=== PATIENT | female | born 1985 | race Caucasian/White ===

== ENCOUNTER 2019-10-27 05:42 | Observation (INO) ==
[2019-10-27] MEDS ORDERED: LIDOCAINE W/ SODIUM BICARB 0.5 ML SYR SUBD ONE (06:00)
[2019-10-27] MEDS ORDERED: Nasal Sanitizer POPSWAB ampule 3 AMP (Nozin) PREOP DOSE ENOS SCH (06:00)
[2019-10-27] MEDS ORDERED: ceFAZolin Inj 2gm (Premix) 2 GM/50 ML BAG IV ONE ×2 (06:00→06:02)
[2019-10-27] MEDS ORDERED: Vancomycin-PHA to Dose IV PRN (06:00)
[2019-10-27] MEDS ORDERED: Lactated Ringers 1,000 ML PRIMARY IV ONE ×3 (06:00→08:51)
[2019-10-27] MEDS ORDERED: VANCOMYCIN IV ONE (06:02)
[2019-10-27] MEDS ORDERED: LIDOCAINE W/ SODIUM BICARB 0.5 ML SYR ONE (06:02)
[2019-10-27 06:16] LABS: BILIRUBIN,URINE SMALL (NEG); CLARITY,URINE CLEAR (CLEAR); COLOR,URINE YELLOW (Y); GLUCOSE, URINE (UA) NEGATIVE (NEG); OCCULT BLOOD,URINE NEGATIVE (NEG); PH,URINE 5.5 (5.0-8.5); PROTEIN,URINE NEGATIVE (NEG); UROBILINOGEN,URINE 0.2 EU/dL (0.2)
[2019-10-27 06:18] LABS: URINE SAMPLE TYPE CLEAN CATCH URINE; URINE SPECIFIC GRAVITY - MAN 1.024
[2019-10-27] MEDS ORDERED: REMIFENTANIL HCL 5 MG VIAL IV ONE (06:32)
[2019-10-27] MEDS ORDERED: KETAMINE 100 MG/1 ML - 5 ML ONE (06:33)
[2019-10-27] MEDS ORDERED: MIDAZOLAM 5 MG/1 ML ONE (06:33)
[2019-10-27] MEDS ORDERED: fentaNYL Inj 250 MCG/5 ML VIAL ONE (06:33)
[2019-10-27] MEDS ORDERED: LIDOCAINE MPF 2% - 5 ML (20 MG/1 ML) ONE (06:34)
[2019-10-27] MEDS ORDERED: Sodium Chloride 0.9% 250 ML ONE ×2 (06:36→06:41)
[2019-10-27] MEDS ORDERED: Propofol 1,000 MG/100 ML VIAL IV ONE ×2 (06:36→10:06)
[2019-10-27] MEDS ORDERED: Vancomycin Inj 1.25gm vial IV ONE (06:41)
[2019-10-27] MEDS ORDERED: PROPOFOL 10 MG/1 ML (200 MG/20 ML) VIAL IV ONE ×2 (06:47→08:41)
[2019-10-27] MEDS ORDERED: ONDANSETRON 4 MG/2 ML VIAL ONE (06:59)
[2019-10-27] MEDS ORDERED: ACETAMINOPHEN 500 MG TABLET PO ONE (07:00)
[2019-10-27] MEDS ORDERED: Gabapentin 600 MG TABLET PO ONE (07:00)
[2019-10-27] MEDS ORDERED: DEXAMETHASONE PF 10 MG/1 ML VIAL ONE (07:00)
[2019-10-27] MEDS ORDERED: BACITRACIN 50,000 UNIT VIAL IRRIG ONE (07:08)
[2019-10-27] MEDS ORDERED: Sodium Chloride 0.9% vial 10 ML ONE (07:08)
[2019-10-27] MEDS ORDERED: BUPIVACAINE 0.5% W/ EPI - 10 ML VIAL ONE (08:16)
[2019-10-27] MEDS ORDERED: DEXMEDETOMIDINE HCL 200 MCG/2 ML VIAL IV ONE (08:35)
[2019-10-27] MEDS ORDERED: REMIFENTANIL HCL 2 MG VIAL IV ONE (10:11)
[2019-10-27] MEDS ORDERED: HYDROmorphone 2 MG/1 ML ONE ×2 (10:31→12:09)
[2019-10-27] MEDS ORDERED: LIDOCAINE W/ SODIUM BICARB 0.5 ML SYR SUBD PRN (11:44)
[2019-10-27] MEDS ORDERED: IPRATROPIUM/ALBUTEROL SULFATE 3 ML NEB NEB ONE ×4 (11:45→13:02)
[2019-10-27] MEDS ORDERED: DIAZEPAM 10 MG/2 ML (5 MG/1 ML) CARPUJECT IVP PRN (11:50)
[2019-10-27] MEDS: HYDROmorphone 2 MG/1 ML IVP PRN ×3 (12:10→12:23)
[2019-10-27] MEDS ORDERED: DIAZEPAM 10 MG/2 ML (5 MG/1 ML) CARPUJECT ONE (12:29)
[2019-10-27] MEDS ORDERED: SUCCINYLCHOLINE CHLORIDE 20 MG/1 ML - 10 ML ONE (12:35)
[2019-10-27] MEDS ORDERED: HYDROcodone-APAP 5 MG -325 MG TABLET PO PRN (12:36)
[2019-10-27] MEDS ORDERED: BISACODYL 5 MG TABLET PO PRN (12:36)
[2019-10-27] MEDS ORDERED: HYDROcodone-APAP 7.5 MG-325 MG TABLET PO PRN (12:36)
[2019-10-27] MEDS ORDERED: MAGNESIUM 400 MG/5 ML - 30 ML (MILK OF MAGNESIA) PO PRN (12:36)
[2019-10-27] MEDS ORDERED: DOCUSATE 100 MG CAPSULE PO PRN (12:36)
[2019-10-27] MEDS ORDERED: ONDANSETRON 4 MG/2 ML VIAL IVP PRN (12:36)
[2019-10-27] MEDS ORDERED: Fleet Enema 133ml RECTAL PRN (12:36)
[2019-10-27] MEDS ORDERED: Ondansetron ODT Tab 4 MG TAB PO PRN (12:36)
[2019-10-27] MEDS ORDERED: PROMETHAZINE 25 MG/1 ML VIAL IM PRN (12:36)
[2019-10-27] MEDS ORDERED: Clindamycin 900mg (Premix) 900 MG/50 ML BAG IV SCH (12:36)
[2019-10-27] MEDS ORDERED: MAGNESIUM CITRATE 296 ML SOLUTION PO PRN (12:36)
[2019-10-27] MEDS ORDERED: DIAZEPAM 5 MG TABLET PO PRN (12:36)
[2019-10-27] MEDS ORDERED: Prochlorperazine Edisylate Inj 10mg/2ml vial IVP PRN (12:36)
[2019-10-27] MEDS: MORPHINE SULFATE 2 MG/1 ML IVP PRN ×3 (13:16→21:04)
[2019-10-27] MEDS ORDERED: Influenza 19-20 Vaccine (6mo+) 60 MCG/0.5 ML SYRINGE IM ONE (13:25)
[2019-10-27] MEDS: DIAZEPAM 10 MG/2 ML (5 MG/1 ML) CARPUJECT IVP PRN ×2 (13:39→21:06)
[2019-10-27] MEDS: HYDROcodone-APAP 10 MG-325 MG TABLET PO PRN ×3 (14:32→22:30)
[2019-10-27] MEDS ORDERED: BACLOFEN PO SCH (15:00)
[2019-10-27] MEDS: ceFAZolin Inj 2gm (Premix) 2 GM/50 ML BAG IV SCH ×2 (16:50→23:55)
[2019-10-27 20:23] VITALS: RESP 16
[2019-10-27] MEDS ORDERED: PREGABALIN 25 MG PO SCH (21:00)
[2019-10-27] MEDS: lamoTRIgine 100 MG TABLET PO SCH (21:02)
[2019-10-27] MEDS: QUETIAPINE FUMARATE 400 MG PO SCH (21:02)
[2019-10-28] MEDS: MORPHINE SULFATE 2 MG/1 ML IVP PRN ×3 (01:47→07:36)
[2019-10-28] MEDS: HYDROcodone-APAP 10 MG-325 MG TABLET PO PRN ×2 (02:43→07:23)
[2019-10-28] MEDS: DIAZEPAM 10 MG/2 ML (5 MG/1 ML) CARPUJECT IVP PRN (02:44)
[2019-10-28 04:52] LABS: BLOOD UREA NITROGEN 8 mg/dL (7-22); BUN/CREATININE RATIO 11.42 (6-20)
[2019-10-28 05:27] LABS: BASOPHILS # (AUTO) 0.04 10*3/UL; BASOPHILS % (AUTO) 0.2 % (0-1); EOSINOPHILS # (AUTO) 0.01 10*3/UL; EOSINOPHILS % (AUTO) 0.1 % (0-8); Hematocrit [HCT] 36.7 % (37.0-47.0); Hemoglobin [HGB] 12.5 g/dL (12.0-16.0); LYMPHOCYTES # (AUTO) 2.89 10*3/uL; MEAN CORPUSCULAR HGB CONC 34.1 g/dL (33-37); MEAN CORPUSCULAR VOLUME 90.4 FL (81-99); MEAN PLATELET VOLUME 9.5 FL (7.4-12.2); MONOCYTES # (AUTO) 1.02 10*3/UL (0.3-0.8); MONOCYTES % (AUTO) 6.1 % (5-15); NEUTROPHILS # (AUTO) 12.81 10*3/UL; NEUTROPHILS % (AUTO) 76.2 % (50-80); RED BLOOD COUNT 4.06 10^6/uL (4.20-5.40)
[2019-10-28 05:29] LABS: PLATELET MORPHOLOGY COMMENT NORMAL MORPHOLOGY (NORM); RBC MORPHOLOGY COMMENT NORMAL MORPHOLOGY (NORM); WBC MORPHOLOGY COMMENT NORMAL MORPHOLOGY (NORM)
[2019-10-28 06:50] VITALS: BP 136/88; TEMP 99.3; O2SAT 95
[2019-10-28] MEDS ORDERED: Influenza 19-20 Vaccine (6mo+) 60 MCG/0.5 ML SYRINGE IM ONE (10:26)
[2019-10-28] MEDS: lamoTRIgine 100 MG TABLET PO SCH (10:41)
[2019-10-28] MEDS: QUETIAPINE FUMARATE 400 MG PO SCH (10:41)
[2019-10-28] MEDS: ceFAZolin Inj 2gm (Premix) 2 GM/50 ML BAG IV SCH (10:42)
== END 2019-10-28 11:16 | disposition home or self-care (01) ==
LOC: MED/SURG 05:42 → OR 05:42 → OPS 05:53
PROVIDERS: ADMIT Neurological Surgery; ATTEND Neurological Surgery